=== PATIENT | male | born 1965 | race Caucasian/White ===

== ENCOUNTER 2017-03-19 09:09 | Day surgery (SDC) | payer BC ==
[2017-03-19] MEDS ORDERED: BENICAR20 MG PO (10:01)
[2017-03-19] MEDS ORDERED: TRINTELLIX20 MG PO (10:02)
[2017-03-19] MEDS ORDERED: MULTIPLE VITAMI1 TA1 PO (10:02)
[2017-03-19] MEDS ORDERED: BAYER CHEWABLE81 MG PO (10:02)
[2017-03-19] MEDS ORDERED: FISH OIL 1,0001 CA1 PO (10:02)
[2017-03-19] MEDS ORDERED: GLUCOSAMINE & C1 CAP PO (10:03)
[2017-03-19] MEDS ORDERED: GEMFIBROZIL600 MG PO (10:04)
[2017-03-19 10:11] VITALS: BP 132/83; BMI 39.4
--- NOTE | 2017-03-19 15:21 | NUR ---
1505-DISCHARGE INSTRUCTIONS GIVEN. PT. ESCORTED VIA WHEELCHAIR TO PERSONAL CAR, LEFT WITH DRIVING.
--- NOTE | 2017-03-22 10:36 | OP ---
PATIENT NAME: LUCIA MEADOWS MEDICAL RECORD: [id number] :61 LOCATION:D.OPS ADMISSION DATE: SURGEON: AJIT LOPEZ MD DATE OF OPERATION: 03/19/2017 PREOPERATIVE DIAGNOSIS: Cervical adenopathy. POSTOPERATIVE DIAGNOSIS: Cervical adenopathy. PROCEDURE: Cervical node biopsy. SURGEON: Ajit Lopez MD ANESTHESIA: General orotracheal. BLOOD LOSS: 1 cc. SPECIMENS: Three separate large lymph nodes from the submental area. COMPLICATIONS: None. DISPOSITION: Recovery, stable. DRAINS: None. FROZEN SECTION DIAGNOSIS: Diffuse B-cell lymphoma. PROCEDURE IN DETAIL: He was brought to the operating room, placed in the supine position, and sedated and intubated by anesthesia. He was positioned, prepped and draped, exposing the anterior neck and the chin. The submental crease was injected with 1 cc of 1% lidocaine with 1:100,000 epinephrine. A horizontal incision was made with a #15 blade. This was taken down through the platysma and bluntly dissected with a tonsil clamp easily to the lymph nodes, which were dissected out. Bipolar cautery was used for some small vessels as each were dissected out pretty much just bluntly with finger. They were very easy to separate from surrounding tissue. There was really no significant bleeding at all. Frozen section returned diffuse B-cell lymphoma, which was consistent with his clinical picture. The area was carefully examined and irrigated. It was completely clean and dry. The platysma was closed with interrupted 3-0 Vicryl. Skin was closed with running subcuticular 5-0 Prolene. Steri-Strips and Mastisol were applied. He was awakened, extubated, and transported to recovery in good condition. No complications. TRANSINT:[id number] Voice Confirmation ID: [id number] DOCUMENT ID: [id number] AJIT LOPEZ MD at 1036 CC: [id number] DICTATION DATE: 03/19/17 1313 CLINICAL HAEMATOLOGIST: 03/19/17 1442 [facility] 03/19/17 [facility] [address] [id number]
--- NOTE | 2017-03-22 10:36 | HP ---
PATIENT: LUCIA MEADOWS MEDICAL RECORD: [id number] ACCOUNT: [id number] LOCATION:D.OPS : 61 ADMISSION DATE: 03/19/17 HISTORY AND PHYSICAL EXAMINATION Preoperative History and Physical HISTORY OF PRESENT ILLNESS: Lucia is a 52-year-old male who has had a progressive diffuse adenopathy, initially starting in the inguinal area and now, he has got a very large submental posterior and anterior cervical adenopathy as well. He is being admitted for cervical node biopsy. PAST MEDICAL HISTORY: Otherwise negative. PAST SURGICAL HISTORY: None. CURRENT MEDICATIONS: Benicar, Trintellix. ALLERGIES: No known drug allergies. PHYSICAL EXAMINATION: GENERAL: He is healthy-appearing. FACE: Normal, symmetric. No lesions. He does have an obvious large submental mass. EYES: Sclerae and conjunctivae are normal. EARS: Canals and TMs are normal. NOSE: No masses, polyps or drainage. ORAL CAVITY AND OROPHARYNX: No trismus. Tongue protrudes in the midline. Pharynx is normal. Palate is normal. NECK: He has got a large submental adenopathy clearly visible. He has got actually quite large posterior cervical adenopathy bilaterally as well as a smaller anterior adenopathy, both jugular chains. IMPRESSION: Diffuse large adenopathy. PLAN: Cervical node biopsy. Plan to take out the water to the submental nodes first. If that is not diagnostic, I can get one on the left posterior cervical nodes and send that for frozen to assist with evaluation. TRANSINT:[id number] Voice Confirmation ID: [id number] DOCUMENT ID: [id number] LUISANA RAIV MD at 1036 CC: [id number] DICTATION DATE: 03/18/17 0857 WORK CAR OPERATOR: 03/18/17 0953 [facility] 03/19/17 [facility] [address] [place] [address]
== END 2017-03-19 15:05 | disposition home or self-care (01) ==
LOC: D.OPS 09:09 → D.PAN 10:30 → D.OPS 15:05
DX: R59.0 Localized enlarged lymph nodes (principal); G47.30 Sleep apnea, unspecified; K21.9 Gastro-esophageal reflux disease without esophagitis; E66.9 Obesity, unspecified; Z68.39 Body mass index [BMI] 39.0-39.9, adult; Z01.812 Encounter for preprocedural laboratory examination

== ENCOUNTER 2017-04-13 06:32 | Day surgery (SDC) | payer BC ==
[~2017-04-13 06:32] MED LIST: BAYER CHEWABLE81 MG PO; BENICAR20 MG PO; FISH OIL 1,0001 CA1 PO; GEMFIBROZIL600 MG PO; GLUCOSAMINE & C1 CAP PO; MULTIPLE VITAMI1 TA1 PO; TRINTELLIX20 MG PO
[2017-04-13 07:39] VITALS: BP 135/87; BMI 37.7
[2017-04-13 07:54] LABS: BASOPHILS 0.7 % (0-2); EOSINOPHILS 0.6 % (0-7); HEMATOCRIT 43.1 % (42.0-54.0); HEMOGLOBIN 14.8 g/dL (13.5-17.5); IMMATURE GRANULOCYTES 6.7 % (0-5); LYMPHOCYTES 10.5 % (15-50); MCH 30.8 pg (26.0-34.0); MCHC 34.3 g/dL (31.0-37.0); MCV 89.6 fL (80.0-100.0); MEAN PLATELET VOLUME 10.2 fL (7.4-10.4); MONOCYTES 11.5 % (2-11); PLATELET COUNT 127 10x3/uL (130-400); RBC 4.81 10x6/uL (4.20-6.10); RDW 13.7 % (11.5-14.5); WBC 6.8 10x3/uL (4.8-10.8)
[2017-04-13 08:05] LABS: INR 0.94 (0.85-1.17); PROTIME 12.4 SECONDS (11.6-15.0)
[2017-04-13 08:06] LABS: APTT 23.6 SECONDS (22.8-39.4); CALC OSMOLALITY 284 mosm/kg (275-300); CALCIUM 8.8 mg/dL (8.5-10.1); CARBON DIOXIDE 26.8 mmol/L (21.0-32.0); CHLORIDE - SERUM 104 mmol/L (98-107); CREATININE - SERUM 0.9 mg/dL (0.6-1.3); GLUCOSE 130 mg/dL (74-106); POTASSIUM - SERUM 4.2 mmol/L (3.5-5.1); SODIUM 142 mmol/L (136-145); UREA NITROGEN 13 mg/dL (7-18); eGFR NON AFRICAN AMERICAN > 90 mL/min (90-120)
[2017-04-13] MEDS ORDERED: HYDROCODONE-APA1 TAB PO (09:32)
--- NOTE | 2017-04-13 13:08 | NUR ---
1235 AWAKE & ALERT, DRESSED. GIVEN DISCHARGE INFORMATION INCLUDING: RX: NORCO 10/325MG, MED REC, NP OPS D/C INSTRUCTIONS, & POWER PORT DISCHARGE INFORMATION PACKET. PT & VOICED UNDERSTANDING. TO PRIVATE CAR PER WHEELCHAIR BY VOLUNTEER. HOME WITH , SHAHRAM MEADOWS. Christiano POLLACK R.N.
--- NOTE | 2017-04-20 11:14 | OP ---
PATIENT NAME: LUCIA MEADOWS MEDICAL RECORD: [id number] :61 LOCATION:D.OPS ADMISSION DATE: SURGEON: DALE GRIFFIN MD DATE OF OPERATION: 04/13/2017 PREOPERATIVE DIAGNOSIS: Non-Hodgkin's lymphoma. POSTOPERATIVE DIAGNOSIS: Non-Hodgkin's lymphoma. PROCEDURE: 1. Left subclavian vein PowerPort placement. 2. Fluoroscopic interpretation. SURGEON: Dale Griffin MD REPORT OF PROCEDURE: The patient's left chest was prepped and draped in sterile fashion. A needle was used to cannulate the left subclavian vein and a guidewire was advanced with ease. Fluoro was used to note that the wire was in good position in the venous system. A skin incision was made on the left superior lateral chest and a subcutaneous pouch was made over the pectoral fascia. The catheter was tunneled between this pouch and wire exit site. The port was then sutured to the pectoral fascia using interrupted 2-0 Prolene. The catheter was cut with a beveled tip at 25 cm. The dilator trocar device was placed over the wire and the wire and dilator were removed. The catheter tip was advanced through the trocar with ease and the trocar was removed. The catheter tip is resting in good position at the superior vena cava. The catheter aspirated nonpulsatile dark blood and flushed easily with heparinized saline. The subcutaneous tissues were infused with 10 mL of 0.25% Marcaine with epinephrine and then reapproximated with interrupted 3-0 Vicryl. The skin incision was then closed with running subcutaneous 5-0 Monocryl and dressed appropriately. COMPLICATIONS: None. CONDITION: Stable. ANESTHESIA: General endotracheal and local. BLOOD LOSS: Minimal. TRANSINT:[id number] Voice Confirmation ID: [id number] DOCUMENT ID: [id number] DALE GRIFFIN MD at 1114 CC: MERCEDEZ DAMICO MD and MARIELENA TURK MD [id number] DICTATION DATE: 04/13/17 0935 ALUMNI COORDINATOR: 04/13/17 1124 [facility] 04/13/17 [place] [address]
== END 2017-04-13 12:35 | disposition home or self-care (01) ==
LOC: D.OPS 06:32 → D.PAN 07:30 → D.OPS 07:30
PROVIDERS: Anesthesiology; Surgery
DX: C85.90 Non-Hodgkin lymphoma, unspecified, unspecified site (principal); Z01.812 Encounter for preprocedural laboratory examination

== ENCOUNTER → 2017-10-14 07:29 | Outpatient (CLI) | payer BC ==
[~2017-10-14 07:29] MED LIST changes: +HYDROCODONE-APA1 TAB PO
== END | disposition home or self-care (01) ==
LOC: D.MRI 07:29
DX: C82.18 Follicular lymphoma grade II, lymph nodes of multiple sites (principal); Z79.899 Other long term (current) drug therapy

== ENCOUNTER → 2017-11-22 08:13 | Outpatient (CLI) | payer BC | END | disposition home or self-care (01) | LOC: D.CT 08:13 | DX: C82.18 Follicular lymphoma grade II, lymph nodes of multiple sites (principal); Z51.81 Encounter for therapeutic drug level monitoring; Z79.899 Other long term (current) drug therapy ==

== ENCOUNTER → 2019-08-28 13:19 | Outpatient (CLI) | payer BC | END | disposition home or self-care (01) | LOC: D.LABREF 13:19 | PROVIDERS: ATTEND Surgery | DX: C85.90 Non-Hodgkin lymphoma, unspecified, unspecified site (principal); M79.9 Soft tissue disorder, unspecified ==